=== PATIENT | female | born 1975 | race Two or more races ===

== ENCOUNTER 2019-04-30 05:57 | Day surgery (SDC) | payer OTHER ==
[2019-04-30] MEDS ORDERED: IBUPROFEN600 MG PO (13:20)
[2019-04-30] MEDS ORDERED: PERCOCET 5-3251 EACH PO (13:20)
== END 2019-04-30 13:50 | disposition home or self-care (01) ==
LOC: CIR.AMB 05:57
DX: N92.0 Excessive and frequent menstruation with regular cycle (principal)